=== PATIENT | female | born 1985 | race Two or more races ===

== ENCOUNTER 2024-12-29 05:13 | Inpatient (IN) | payer OTHER ==
[~2024-12-29] VITALS: Ht 172.7 cm; Wt 3.6 kg
[2024-12-29] MEDS ORDERED: MORPHINE SULFATE 4 MG/ML CARTRIDGE IV PRN ×2 (05:30→18:45)
[2024-12-29] MEDS ORDERED: RINGERS SOLUTION,LACTATED 1,000 ML IV SCH (05:30)
[2024-12-29 05:32] VITALS: BP 117/73
[2024-12-29] MEDS ORDERED: PRENATAL TABLE1 EAC1 PO (06:03)
[2024-12-29] MEDS ORDERED: ASA81 MG PO (06:05)
[2024-12-29] MEDS ORDERED: SYNTHROID75 MCG PO (06:06)
[2024-12-29 06:27] LABS: BASO % 0.2 % (0.1-1.2); EOS # 0.04 (0.04-0.54); EOS % 0.8 % (0.7-7.0); LYMPH # 1.38 (1.18-3.74); LYMPH % 27.4 % (19.3-53.1); MEAN PLATELET VOLUME 11.70 fl (9.4-12.4); MONO # 0.29 (0.24-0.82); MONO % 5.8 % (4.7-12.5); NEUT # 3.30 (1.56-6.13); NEUT % 65.4 % (34.0-71.1); RED CELL DISTRIBUTION WIDTH 12.6 % (11.6-14.4)
[2024-12-29 06:55] LABS: COVID-19 AG NEGATIVE (NEGATIVE)
[2024-12-29 06:58] LABS: URINE APPEARANCE Clear; URINE BILIRRUBIN Negative (NEGATIVE); URINE BLOOD Negative; URINE COLOR Dark Yellow; URINE GLUCOSE Negative (NEGATIVE); URINE KETONE Trace (NEGATIVE); URINE LEUKOCYTE Trace; URINE NITRATE Negative; URINE PROTEIN Trace (NEGATIVE); URINE UROBILINOGEN 1.0 E.U./dl
[2024-12-29 07:01] LABS: URINE BACTERIA 1713.6 uL (0.0-1933); URINE EPITHELIAL CELLS 33.8 uL (0.0-38.8); URINE RBC 2.9 uL (0.0-20.8); URINE WBC 7.8 uL (0.0-23.2)
[2024-12-29 07:09] VITALS: BP 114/69
[2024-12-29 07:09] LABS: INR 0.94
[2024-12-29 07:10] LABS: URINE CAST 0.14 uL (0.0-1.40)
[2024-12-29 07:19] LABS: ALT/SGPT 56.0 U/L (12-78); AST/SGOT 37.0 U/L (15-37); BILIRUBIN TOTAL 0.7 mg/dL (0.3-1.2); BUN CREA RATIO 11.0 (7.0-25.0); CREATININE SERUM 0.64 mg/dL (0.55-1.02); GFR 102.78; GLOBULINA 3.4 G/DL (2.4-3.5); GLUCOSE FASTING 97.0 mg/dL (65-100); OSMOLALITY SERUM 277.0 MOSM/KG (275-295)
[2024-12-29] MEDS ORDERED: OXYTOCIN 500 ML IV ONE (08:15)
[2024-12-29 11:22] VITALS: BP 133/72; O2SAT 100
[2024-12-29] MEDS ORDERED: CITRIC ACID/SODIUM CITRATE 30 ML BLIST.PACK PO SCH (16:30)
[2024-12-29] MEDS ORDERED: CEFAZOLIN SODIUM 1,000 MG VIAL IV ONE (16:30)
[2024-12-29] MEDS ORDERED: ERYTHROMYCIN BASE OPHT 1GM EACH TUBE OP ONE (18:30)
[2024-12-29] MEDS ORDERED: OXYTOCIN 10 UNITS/ML VIAL IV ONE (18:30)
[2024-12-29] MEDS ORDERED: OXYTOCIN 1,000 ML IV SCH (18:45)
[2024-12-29] MEDS ORDERED: MORPHINE SULFATE 4 MG/ML VIAL IV ONE ×2 (19:00→21:00)
[2024-12-29 21:46] VITALS: BP 126/72
[2024-12-29] MEDS ORDERED: ACETAMINOPHEN 325 MG TABLET PO PRN (22:15)
[2024-12-29] MEDS ORDERED: ACETAMINOPHEN 500 MG GEL..CAP PO PRN (22:15)
[2024-12-29] MEDS ORDERED: OxyCODONE HCL 5 MG TABLET (ROXICODONE) PO PRN (22:15)
[2024-12-30] VITALS: BP 126/74
[2024-12-30] MEDS ORDERED: KETOROLAC TROMETHAMINE 30 MG VIAL IV SCH
[2024-12-30 04:30] VITALS: BP 117/74
[2024-12-30 09:04] VITALS: BP 123/78; O2SAT 98
[2024-12-30] MEDS ORDERED: KETOROLAC TROMETHAMINE 10 MG TABLET PO SCH (12:00)
[2024-12-30 16:50] VITALS: BP 138/82
[2024-12-31 02:07] VITALS: BP 138/88
[2024-12-31 08:00] VITALS: BP 130/70
[2024-12-31] MEDS ORDERED: METOCLOPRAMIDE HCL 10 MG TABLET PO NR (12:30)
[2024-12-31 16:00] VITALS: BP 116/70
[2025-01-01 00:32] VITALS: BP 129/63
[2025-01-01 08:00] VITALS: BP 126/78
== END 2025-01-01 15:15 | disposition home or self-care (01) | DRG 788 ==
LOC: LDR 05:13 → OB/GYN 05:13
PROVIDERS: ADMIT Obstetrics & Gynecology Gynecology; ATTEND Obstetrics & Gynecology Gynecology
PROC: 4A1HXCZ Monitoring of Products of Conception, Cardiac Rate, External Approach (ICD-10-PCS; 2024-12-29)
PROC: 10D00Z1 Extraction of Products of Conception, Low, Open Approach (ICD-10-PCS; principal; 2024-12-29 17:00)
DX: O36.63X0 Maternal care for excessive fetal growth, third trimester, not applicable or unspecified (principal); Z3A.39 39 weeks gestation of pregnancy; Z37.0 Single live birth